=== PATIENT | male | born 1945 | race Caucasian/White ===

== ENCOUNTER 2016-12-10 13:28 | Emergency (ER) | payer MEDICARE, OTHER | END 2016-12-10 16:26 | disposition home or self-care (01) | LOC: ER1 13:28 | DX: S09.90XA Unspecified injury of head, initial encounter (principal); S16.1XXA Strain of muscle, fascia and tendon at neck level, initial encounter; S43.421A Sprain of right rotator cuff capsule, initial encounter; E78.5 Hyperlipidemia, unspecified; Z88.0 Allergy status to penicillin; F17.210 Nicotine dependence, cigarettes, uncomplicated; W01.0XXA Fall on same level from slipping, tripping and stumbling without subsequent striking against object, initial encounter; Y92.009 Unspecified place in unspecified non-institutional (private) residence as the place of occurrence of the external cause | CPT/HCPCS: 70450; 71020; 72125; 73030; 73060; 73080; 99284 ==

== ENCOUNTER 2017-01-24 11:16 | Emergency (ER) | payer MEDICARE, OTHER | END 2017-01-24 13:50 | disposition home or self-care (01) | LOC: ER1 11:16 | DX: S46.911A Strain of unspecified muscle, fascia and tendon at shoulder and upper arm level, right arm, initial encounter (principal); S16.1XXA Strain of muscle, fascia and tendon at neck level, initial encounter; S09.90XA Unspecified injury of head, initial encounter; F17.210 Nicotine dependence, cigarettes, uncomplicated; C61 Malignant neoplasm of prostate; J44.9 Chronic obstructive pulmonary disease, unspecified; Z88.0 Allergy status to penicillin; Z88.8 Allergy status to other drugs, medicaments and biological substances; W01.0XXA Fall on same level from slipping, tripping and stumbling without subsequent striking against object, initial encounter | CPT/HCPCS: 70450; 72125; 73030; 99283 ==

== ENCOUNTER → 2021-08-14 | Outpatient (CLI) | payer MEDICARE, OTHER ==
[~2021-08-14] MED LIST: AMIODARONE HCL200 MG PO; ANORO ELLIPTA1 EACH INH; BUPROPION XL150 MG PO; CLARITIN10 M2 PO; CLEOCIN HCL300 MG PO; COLACE100 MG PO; COMBIVENT RESPIM4 GM INH; CYMBALTA60 MG PO; DOXEPIN HCL150 MG PO; DOXYCYCLINE HY100 MG PO; FEOSOL325 MG PO; FLOMAX0.4 MG PO; KEFLEX500 MG PO; LINZESS72 MCG PO; LISINOPRIL10 MG PO; LOPRESSOR 25 MG25 MG PO; LYRICA150 MG PO; MOBIC15 MG PO; MOVANTIK25 MG PO; MUPIROCIN22 GM TOP; NASONEX SPRAY 117 GM; NYSTOP60 GM TOP; OMEPRAZOLE20 MG PO; PATIENT'S OWN MEDICA PO; PREDNISONE 20 M20 MG PO; PREDNISONE10 MG PO; PROSCAR 5 MG TAB5 MG PO; PROTONIX 40 MG40 M1 PO; SANTYL OINT 3030 GM TP; SPIRIVA HANDIH18 MCG INH; SUBOXONE 8 MG-1 EACH PO; SYMBICORT 16010.2 GM INH; VITAMIN D325 MC6 PO; ZANAFLEX2 MG PO; ZOCOR 40 MG TAB40 MG PO
== END ==
LOC: HEART 5 10:53
DX: Z01.811 Encounter for preprocedural respiratory examination (principal); J44.9 Chronic obstructive pulmonary disease, unspecified
CPT/HCPCS: 94060; 94729